=== PATIENT | female | born 1970 | race African-American/Black ===

== ENCOUNTER 2024-03-16 04:56 | Emergency (ER) | payer OTHER ==
[2024-03-16] MEDS ORDERED: Ondansetron PF 4 MG/2 ML Vial ONE (05:23)
[2024-03-16] MEDS ORDERED: Morphine 4 MG/ML VIAL ONE (05:23)
[2024-03-16] MEDS ORDERED: Magnesium 2 GM/50 ML BAG (IN WATER) ONE (06:26)
[2024-03-16 06:41] LABS: INR-International Normal Ratio 1.1; PTT 27.9 sec (22.0-33.0); Prothrombin Time 11.9 sec (9.5-12.1)
[2024-03-16 06:53] LABS: Troponin I Less than 0.010 ng/mL (< 0.028)
[2024-03-16 06:57] LABS: #Basophils 0.02 10x3/uL (0.0-0.2); #Eosinphils 0.04 10x3/uL (0.0-0.5); #Monocytes 1.03 10x3/uL (0.0-1.1); #Neutrophils 8.18 10x3/uL (1.5-8.4); %Basophils 0.2 % (0.0-2.0); %Eosinophils 0.3 % (0.0-6.0); %Lymphocytes 25.2 % (18.0-47.0); %Monocytes 8.3 % (0.0-10.0); %Neutrophils 65.8 % (40.0-75.0); Hematocrit 40.2 % (34.9-44.5); Hemoglobin 12.5 g/dL (12.0-15.5); Mean Corpuscular HGB CONC 31.1 g/dL (32.0-36.0); Mean Corpuscular Hemoglobin 27.7 pg (27.0-33.0); Mean Corpuscular Volume 88.9 fL (81.6-98.3); Mean Platelet Volume 10.8 fL (7.4-10.4); Platelet Count 287 10x3/uL (150-450); RBC Distribution Width 13.5 % (11.5-14.5); Red Blood Cell (RBC) Count 4.52 10x6/uL (3.90-5.03); White Blood Cell (WBC) Count 12.4 10x3/uL (3.5-10.5)
[2024-03-16 07:14] LABS: Bilirubin Neg (Negative); Blood, Urine Negative (Negative); Clarity Slightly Cloudy (Clear); Glucose, Urine (Dipstick) Normal (Negative); Ketone, Urine 50 mg/dL (Negative); Leukocyte 500 (Negative); Nitrite Negative (Negative); Protein, Urine (Dipstick) 30 mg/dl (Neg-Trace); Specific Gravity, Urine 1.015 (1.005-1.030)
[2024-03-16] MEDS ORDERED: Iopamidol 300 61% 100 ML VIAL FS ONE (09:59)
[2024-03-16] MEDS ORDERED: Amlodipine 10 MG TAB PO SCH (10:00)
[2024-03-16] MEDS ORDERED: Hydrochlorothiazide 25 MG TAB PO SCH (10:00)
[2024-03-16 10:12] LABS: ALT (SGPT) 59 U/L (8-55); AST (SGOT) 20 U/L (5-34); Alkaline Phosphatase 115 U/L (40-110); Anion Gap 18 mmol/L (10-20); BUN (Urea Nitrogen) 25 mg/dL (9.8-20.1); Bilirubin, Total 0.6 mg/dL (0.2-1.2); Calc. Creatinine Clearance 0 mL/min (70-130); Calcium 10.2 mg/dL (7.8-10.44); Carbon Dioxide 22 mmol/L (22-29); Chloride 102 mmol/L (98-107); Estimated GFR 78; Globulin 4.2 g/dL (2.4-3.5); Glucose 94 mg/dL (70-105); Lipase 9 U/L (8-78); Magnesium 1.8 mg/dL (1.6-2.6); Potassium 3.3 mmol/L (3.5-5.1); Protein, Total 8.2 g/dL (6.0-8.3); Sodium 139 mmol/L (136-145)
[2024-03-16 10:17] LABS: Bacteria/HPF 3+ HPF (None Seen); CAUTI Indications for Culture Pelvic or flank pain; RBC/HPF 0-3 HPF (0-3); Squamous Epithelial Greater than 50 HPF (0-3); WBC/HPF Greater than 50 HPF (0-3)
[2024-03-16 10:19] LABS: Urine Culture Reflex Yes Yes
[2024-03-16] MEDS ORDERED: Potassium Chloride 20 MEQ TAB ONE (10:28)
[2024-03-16] MEDS ORDERED: Lidocaine 4% Patch TD SCH (11:15)
== END 2024-03-16 11:47 | disposition home or self-care (01) ==
LOC: CSHERS 04:56
DX: N39.0 Urinary tract infection, site not specified (principal); I10 Essential (primary) hypertension
CPT/HCPCS: 71045; 74177; 80053; 81001; 83690; 83735; 83880; 84484; 85025; 85610; 85730; 87086; 93005; 96365; 96366; 96375; J2272; J2405; J3475; Q9967